=== PATIENT | male | born 1965 | race Caucasian/White ===

== ENCOUNTER → 2023-10-09 | Outpatient (CLI) | payer MEDICARE ==
[~2023-10-09] VITALS: Ht 172.7 cm; Wt 75.0 kg
[~2023-10-09] MED LIST: ANTIVERT 25MG25 MG PO; CATAPRES0.2 MG PO; CATAPRES0.3 MG PO; DILAUDID 2MG TAB2 MG PO; DILAUDID8 M1 PO; HCTZ 25MG TAB25 MG PO; LASIX 40MG TABL40 MG PO; MOBIC 7.5MG7.5 MG PO; PRILOSEC 20MG20 MG PO; WELLBUTRIN XL300 M1 PO; ZOFRAN ODT4 MG PO
[2023-10-09 10:52] VITALS: BP 186/101; PULSE 72; TEMP 97.5
[2023-10-09 12:16] VITALS: BP 179/84; PULSE 78
[2023-10-09 12:30] VITALS: BP 127/84; PULSE 82
[2023-10-09 12:45] VITALS: BP 122/85; PULSE 78
== END ==
LOC: COL.RAD 10:31
DX: Z12.2 Encounter for screening for malignant neoplasm of respiratory organs (principal); M54.50 Low back pain, unspecified; F17.210 Nicotine dependence, cigarettes, uncomplicated

== ENCOUNTER 2023-10-31 12:35 | Outpatient (RCR) | payer MEDICARE | END 2023-11-01 | LOC: MKS.ESL.PT | DX: M54.50 Low back pain, unspecified (principal) ==

== ENCOUNTER 2023-11-07 22:01 | Emergency (ER) | payer MEDICARE, MEDICAID ==
[~2023-11-07] VITALS: Ht 177.8 cm; Wt 86.4 kg
[2023-11-07] MEDS ORDERED: NS 1,000 ML IV ONE ×2 (22:15→23:00)
[2023-11-07 22:23] LABS: HEMATOCRIT 50.5 % (42.0-52.0); HEMOGLOBIN 16.5 g/dl (13.5-18.0); MEAN CELL VOLUME 87 fl (80.0-100.0); MEAN CORPUSCULAR HEMOGLOBIN 28 pg (27-31); MEAN CORPUSCULAR HGB CONC 33 g/dl (33.0-37.0); MEAN PLATELET VOLUME 10.9 fl (7.4-10.4); PLATELET COUNT 497 K/mm3 (130-400); RED BLOOD COUNT 5.83 M/mm3 (4.20-5.60); REDCELL DISTRIBUTION WIDTH-CV 15.3 % (11.5-14.5)
[2023-11-07 22:29] LABS: INR 1.3 (0.8-3.0)
[2023-11-07 22:41] LABS: ACETAMINOPHEN < 7.0 ug/mL (10-30); ALANINE AMINOTRANSFERASE 23 U/L (0-55); ALBUMIN 4.1 gm/dL (3.5-5.0); ALKALINE PHOSPHATASE 125 U/L (40-150); ANION GAP 30 mmol/L (7-16); AST,SGOT 30 U/L (5-34); BILIRUBIN,TOTAL 0.5 mg/dL (0.2-1.2); BLOOD UREA NITROGEN 30 mg/dL (8-26); CALCIUM 10.8 mg/dL (8.4-10.2); CHLORIDE 107 mmol/L (98-107); CREATINE KINASE 1004 U/L (30-200); CREATININE, serum 2.07 mg/dL (0.72-1.25); GLUCOSE 394 mg/dL (70-99); POTASSIUM 3.3 mmol/L (3.5-4.5); SODIUM 145 mmol/L (136-145)
[2023-11-07 22:47] LABS: ALCOHOL(ethanol),MEDICAL < 10 mg/dL (0-10); CARBON DIOXIDE 8 mmol/L (22-29); SALICYLATE < 5.0 mg/dL (15.0-30.0)
[2023-11-07 22:48] LABS: TROPONIN-I 0.084 ng/mL (0.00-0.033)
[2023-11-07 22:54] LABS: BAND 8 % (0-10); EOSINOPHIL 1 % (0-4); LYMPHOCYTE 5 % (20.0-51.0); NEUTROPHILS 81 % (42.0-75.2); TOXIC GRANULATION PRESENT
[2023-11-07 22:55] LABS: ANISOCYTOSIS 1+
[2023-11-07 22:58] LABS: ACETONE,SERUM NEGATIVE
[2023-11-07 23:10] VITALS: TEMP 101.3
[2023-11-07] MEDS ORDERED: fentaNYL 50 MCG/ML 2 ML VIAL IV ONE (23:30)
[2023-11-07] MEDS ORDERED: Ketamine 50 MG/5 ML SYRINGE IV ONE (23:45)
[2023-11-08] MEDS ORDERED: niCARdipine 200 ML IV ONE (00:15)
[2023-11-08] MEDS ORDERED: LORazepam 2 MG/ML 1 ML VIAL IV ONE (00:59)
[2023-11-08] MEDS ORDERED: Etomidate 20 MG/10 ML VIAL IV ONE (01:23)
[2023-11-08] MEDS ORDERED: Rocuronium 50 MG/5 ML Multi-Dose VIAL IV ONE (01:23)
[2023-11-08] MEDS ORDERED: LR 1,000 ML IV ONE (01:45)
[2023-11-08] MEDS ORDERED: fentaNYL 100 ML IV ONE (01:45)
[2023-11-08] MEDS ORDERED: NS 1,000 ML IV ONE ×2 (01:45)
[2023-11-08 01:52] LABS: CALCIUM 9.5 mg/dL (8.4-10.2); CREATININE, serum 1.82 mg/dL (0.72-1.25); POTASSIUM 3.3 mmol/L (3.5-4.5)
[2023-11-08] MEDS ORDERED: Iodixanol-320 100 ML BOTTLE IV ONE (02:13)
[2023-11-08 02:20] VITALS: BP 218/145; PULSE 124
== END 2023-11-08 02:20 | disposition short-term general hospital (02) ==
LOC: COL.ER 22:01
PROVIDERS: Emergency Medicine
DX: I62.9 Nontraumatic intracranial hemorrhage, unspecified (principal); N17.9 Acute kidney failure, unspecified; E87.20 Acidosis, unspecified; I21.4 Non-ST elevation (NSTEMI) myocardial infarction; I10 Essential (primary) hypertension; D72.829 Elevated white blood cell count, unspecified; R73.9 Hyperglycemia, unspecified; R74.02 Elevation of levels of lactic acid dehydrogenase [LDH]; K21.9 Gastro-esophageal reflux disease without esophagitis; G89.29 Other chronic pain; Z95.810 Presence of automatic (implantable) cardiac defibrillator; Z79.899 Other long term (current) drug therapy
CPT/HCPCS: A4314; J2060; J2404; J2543; J2704; J3010; J7030; Q9967

== ENCOUNTER → 2024-05-31 | Outpatient (CLI) | payer MEDICAID | LOC: COL.RAD 08:26 | DX: N43.3 Hydrocele, unspecified (principal) ==